=== PATIENT | male | born 1960 | race American Indian/Alaskan Native ===

== ENCOUNTER 2017-02-03 13:02 | Emergency (ER) | payer OTHER ==
[2017-02-03] MEDS ORDERED: TYLENOL PO ONE (14:17)
--- NOTE | 2017-02-03 14:17 | Emergency Department Report ---
Chief Complaint: Weakness Stated Complaint: WEAK Time Seen by Provider: 02/03/17 14:14 - HPI History of Present Illness: pt c/o generalized weakness x 2 weeks. - ROS Review of Systems: - headache + nausea + urinary frequency - Exam Physical Exam: PT is alert and appropriate steady gait no focal weakness MSE screening note: Focused history and physical exam performed. Due to findings the following was ordered: labs ED Disposition for MSE Condition: Stable
[2017-02-03 14:52] LABS: Basophils % (Auto) 0.3 % (0.0-1.8); Eosinophils % (Auto) 0.3 % (0.0-4.3); Hematocrit 47.7 % (35.5-45.6); Hemoglobin 15.9 gm/dl (11.8-15.2); Mean Corpuscular HGB Conc 33 % (32-34); Mean Corpuscular Hemoglobin 29 pg (28-32); Mean Corpuscular Volume 87 fl (84-94); Platelet Count 353 K/mm3 (140-440); Red Blood Count 5.48 M/mm3 (3.65-5.03); Red Cell Distribution Width 14.3 % (13.2-15.2); White Blood Count 10.4 K/mm3 (4.5-11.0)
[2017-02-03 15:01] LABS: INR 1.06 (0.87-1.13)
[2017-02-03 15:18] LABS: Erythrocyte Sedimentation Rate 31 mm/Hr (0-20)
[2017-02-03 15:25] LABS: Alanine Aminotransferase 29 units/L (7-56); Albumin 3.9 g/dL (3.9-5); Alkaline Phosphatase 87 units/L (35-129); Anion Gap 22 mmol/L; BUN/Creatinine Ratio 8.88; Blood Urea Nitrogen 8 mg/dL (9-20); Calcium 9.6 mg/dL (8.4-10.2); Carbon Dioxide 25 mmol/L (22-30); Chloride 93.8 mmol/L (98-107); Glucose 115 mg/dL (75-100); Lipase 27 units/L (13-60); Potassium 4.4 mmol/L (3.6-5.0); Sodium 136 mmol/L (137-145); Total Protein 7.9 g/dL (6.3-8.2)
[2017-02-03] MEDS ORDERED: NACL 0.9% 1000 ML IV ONE (15:54)
--- NOTE | 2017-02-03 15:55 | Emergency Department Report ---
ED General Adult HPI - General Chief complaint: Fever Stated complaint: WEAK Time Seen by Provider: 02/03/17 14:14 Source: patient Mode of arrival: Ambulatory Limitations: No Limitations - History of Present Illness Initial comments: Patient is a 56-year-old male who presents with fever and body aches. Patient states that for the last 2 weeks he he's been having fever. And myalgias. He went to the [facility] 2 weeks ago he states that the only person he was sick around was a nohemy in the plane was coughing a lot. His body aches occur intermittently and some achy type of pain they radiate throughout his body. Nothing makes it better or worse the body aches are 4 out 10. Patient states that his fever has been high in the 100s. And he has some night sweats at night. He denies having any cough. But he urinates frequently. - Related Data Previous Rx's Medication Instructions Recorded Last Taken Type Ciprofloxacin [Ciprofloxacin ORAL 500 mg PO Q12H #14 ml 02/03/17 Unknown Rx LIQ] Allergies Allergy/AdvReac Type Severity Reaction Status Date / Time No Known Allergies Allergy Unverified 02/03/17 14:19 ED Review of Systems ROS: Stated complaint: WEAK Other details as noted in HPI Constitutional: fever, weakness Eyes: denies: eye pain, eye discharge, vision change ENT: denies: ear pain, throat pain Respiratory: denies: cough, shortness of breath, wheezing Cardiovascular: denies: chest pain, palpitations Endocrine: no symptoms reported Gastrointestinal: denies: abdominal pain, nausea, diarrhea Genitourinary: urgency, frequency. denies: dysuria Musculoskeletal: myalgia Skin: denies: rash, lesions Neurological: denies: headache, weakness, paresthesias Psychiatric: denies: anxiety, depression Hematological/Lymphatic: denies: easy bleeding, easy bruising ED Past Medical Hx - Past Medical History Previous Medical History?: No - Surgical History Past Surgical History?: Yes Additional Surgical History: Left Knee - Social History Smoking Status: Never Smoker Substance Use Type: None - Medications Home Medications: Home Medications Medication Instructions Recorded Confirmed Last Taken Type Ciprofloxacin [Ciprofloxacin ORAL 500 mg PO Q12H #14 ml 02/03/17 Unknown Rx LIQ] ED Physical Exam - General Limitations: No Limitations General appearance: alert, in no apparent distress - Head Head exam: Present: atraumatic, normocephalic - Eye Eye exam: Present: normal appearance - ENT ENT exam: Present: mucous membranes moist - Neck Neck exam: Present: normal inspection - Respiratory Respiratory exam: Present: normal lung sounds bilaterally. Absent: respiratory distress, wheezes - Cardiovascular Cardiovascular Exam: Present: regular rate, normal rhythm, normal heart sounds - GI/Abdominal GI/Abdominal exam: Present: soft, normal bowel sounds - Rectal Rectal exam: Present: deferred - Extremities Exam Extremities exam: Present: normal inspection - Back Exam Back exam: Present: normal inspection - Neurological Exam Neurological exam: Present: alert, oriented X3 - Psychiatric Psychiatric exam: Present: normal affect, normal mood - Skin Skin exam: Present: warm, diaphoretic ED Course Vital Signs 02/03/17 02/03/17 02/03/17 14:14 16:36 16:39 Temperature 103 F H Pulse Rate 93 H Respiratory 22 16 16 Rate Blood Pressure 173/122 Blood Pressure [Left] O2 Sat by Pulse 99 100 Oximetry 02/03/17 02/03/17 02/03/17 16:40 16:55 20:25 Temperature 99.5 F 98.9 F Pulse Rate 76 74 72 Respiratory 18 16 20 Rate Blood Pressure Blood Pressure 120/74 120/72 [Left] O2 Sat by Pulse 100 100 Oximetry - Reevaluation(s) Reevaluation #1: 02/03/17 18:43 discussed with patient that with his high fever and with his myalgias and is outside travel he needs to be admitted. Gave patient a work note because he has to go to court tomorrow and that he must be excused because he has a life-threatening condition. 02/03/17 23:48 Reevaluation #2: 02/03/17 18:46 Amrit is patient with Dr. Richards the hospitalist he agrees with admission states that Vancomycin and Zosyn should be fine. ED Medical Decision Making - Lab Data Result diagrams: 02/03/17 14:32 02/03/17 14:32 Laboratory Results - last 24 hr 02/03/17 02/03/17 02/03/17 14:21 14:32 14:32 WBC 10.4 RBC 5.48 H Hgb 15.9 H Hct 47.7 H MCV 87 MCH 29 MCHC 33 RDW 14.3 Plt Count 353 Lymph % (Auto) 14.9 Moore % (Auto) 6.9 Eos % (Auto) 0.3 Baso % (Auto) 0.3 Lymph # 1.6 Moore # 0.7 Eos # 0.0 Baso # 0.0 Seg Neutrophils % 77.6 H Seg Neutrophils # 8.1 H ESR 31 PT INR Sodium 136 L Potassium 4.4 Chloride 93.8 L Carbon Dioxide 25 Anion Gap 22 BUN 8 L Creatinine 0.9 Estimated GFR > 60 BUN/Creatinine Ratio 8.88 Glucose 115 H POC Glucose 104 Lactic Acid Calcium 9.6 Total Bilirubin 1.30 H AST 34 ALT 29 Alkaline Phosphatase 87 Troponin T < 0.010 C-Reactive Protein 20.80 H Total Protein 7.9 Albumin 3.9 Albumin/Globulin Ratio 1.0 Lipase 27 Urine Color Urine Turbidity Urine pH Ur Specific [place] Urine Protein Urine Glucose (UA) Urine Ketones Urine Blood Urine Nitrite Urine Bilirubin Urine Urobilinogen Ur Leukocyte Esterase Urine WBC (Auto) Urine RBC (Auto) U Epithel Cells (Auto) Urine Bacteria (Auto) Urine WBC Clumps Urine Mucus 02/03/17 02/03/17 02/03/17 14:32 14:39 15:30 WBC RBC Hgb Hct MCV MCH MCHC RDW Plt Count Lymph % (Auto) Moore % (Auto) Eos % (Auto) Baso % (Auto) Lymph # Moore # Eos # Baso # Seg Neutrophils % Seg Neutrophils # ESR PT 14.3 INR 1.06 Sodium Potassium Chloride Carbon Dioxide Anion Gap BUN Creatinine Estimated GFR BUN/Creatinine Ratio Glucose POC Glucose Lactic Acid 2.00 Calcium Total Bilirubin AST ALT Alkaline Phosphatase Troponin T C-Reactive Protein Total Protein Albumin Albumin/Globulin Ratio Lipase Urine Color Yellow Urine Turbidity Cloudy Urine pH 5.0 Ur Specific [place] 1.014 Urine Protein 100 mg/dl Urine Glucose (UA) Neg Urine Ketones Neg Urine Blood Lg Urine Nitrite Pos Urine Bilirubin Neg Urine Urobilinogen 4.0 Ur Leukocyte Esterase Lg Urine WBC (Auto) > 182.0 H Urine RBC (Auto) 18.0 U Epithel Cells (Auto) < 1.0 Urine Bacteria (Auto) 1+ Urine WBC Clumps 3+ Urine Mucus Few - EKG Data -: EKG Interpreted by Mi - EKG Data 02/03/17 17:45 EKG shows normal sinus rhythm no T-wave inversions no LVH and no prolonged intervals. - Radiology Data Radiology results: image reviewed Chest x-ray shows no acute pulmonary disease. - Medical Decision Making Chief medical diagnosis: Sepsis secondary to UTI Differential medical diagnosis: Pneumonia, viral infection, malaria, yellow fever We'll get CBC, CMP, urinalysis, blood cultures, 30 mL per kilo fluid bolus, antibiotics. The patient had been potential sepsis and getting vancomycin he will need to be admitted to the hospital. Due to patient having such high fever as ago on for the last 2 weeks has a potentially life-threatening infection will admit patient to hospital. Patient's urine shows a large palpable WBCs which is like the source of his infection. Critical Care Time: Yes Critical care time in (mins) excluding proc time.: 30 Critical care attestation.: If time is entered above; I have spent that time in minutes in the direct care of this critically ill patient, excluding procedure time. Time spent with patient 20 minutes Time spent over patient's lab 5 minutes Time spent discussing patient's family 5 minutes Time reviewed and all labs 0 minutes ED Disposition Clinical Impression: Sepsis Qualifiers: Sepsis type: sepsis due to unspecified organism Qualified Code(s): A41.9 - Sepsis, unspecified organism UTI (urinary tract infection) Qualifiers: Urinary tract infection type: acute cystitis Hematuria presence: without hematuria Qualified Code(s): N30.00 - Acute cystitis without hematuria Disposition: OP ADMIT IP TO THIS HOSP Is pt being admited?: Yes Does the pt Need Aspirin: No Condition: Stable Prescriptions: Ciprofloxacin [Ciprofloxacin ORAL LIQ] 500 mg PO Q12H #14 ml Referrals: PRIMARY CARE, [Primary Care Provider] - 3-5 Days Forms: Work/School Release Form(ED)
[2017-02-03] MEDS ORDERED: VANCOMYCIN VIAL IV ONE (16:15)
[2017-02-03 16:16] LABS: Bacteria,Urine 1+ /HPF (Negative); Bilirubin,Urine NEG (Negative); Blood,Urine LG (Negative); Ketones,Urine NEG (Negative); Leukocyte Esterase,Urine LG (Negative); Mucus,Urine FEW /HPF; Nitrite,Urine POS (Negative)
[2017-02-03 16:17] LABS: WBC,Urine > 182.0 /HPF (0.0-6.0)
[2017-02-03] MEDS ORDERED: ZOSYN/NS 4.5GM/100ML 4.5 GM/100 ML VIAL IV ONE (16:17)
[2017-02-03 16:56] LABS: LA REFLEX Y
[2017-02-03] MEDS ORDERED: VANCOMYCIN PHARMACY TO DOSE IV SCH (17:00)
[2017-02-03] MEDS ORDERED: VANCOMYCIN 1,750 MG in NACL 0.9% 500 ML 500 ML IV ONE (18:00)
--- NOTE | 2017-02-03 18:28 | History and Physical Report ---
Medications and Allergies Allergies Allergy/AdvReac Type Severity Reaction Status Date / Time No Known Allergies Allergy Unverified 02/03/17 14:19 Active Meds: Active Medications Vancomycin HCl 1,750 mg/ (Sodium Chloride) 535 mls @ 333.333 mls/hr IV ONCE.ED ONE Stop: 02/03/17 19:36 Last Admin: 02/03/17 18:18 Dose: 333.333 mls/hr Vancomycin HCl 1,500 mg/ (Sodium Chloride) 530 mls @ 333.333 mls/hr IV Q12H K[facility] Vancomycin HCl (Vancomycin Pharmacy To Dose) 1 each IV PKCONSULT K[facility]H PRN Reason: Protocol Exam - Constitutional Vitals: Temp Pulse Resp BP Pulse Ox 99.5 F 74 16 120/74 100 02/03/17 16:55 02/03/17 16:55 02/03/17 16:55 02/03/17 16:55 02/03/17 16:55 Results - Labs CBC & Chem 7: 02/03/17 14:32 02/03/17 14:32 Labs: Abnormal lab results 02/03/17 02/03/17 02/03/17 Range/Units 14:32 14:32 15:30 RBC 5.48 H (3.65-5.03) M/mm3 Hgb 15.9 H (11.8-15.2) gm/dl Hct 47.7 H (35.5-45.6) % Seg Neutrophils % 77.6 H (40.0-70.0) % Seg Neutrophils # 8.1 H (1.8-7.7) K/mm3 Sodium 136 L (137-145) mmol/L Chloride 93.8 L (98-107) mmol/L BUN 8 L (9-20) mg/dL Glucose 115 H (75-100) mg/dL Total Bilirubin 1.30 H (0.1-1.2) mg/dL C-Reactive Protein 20.80 H (0.00-1.30) mg/dL Urine WBC (Auto) > 182.0 H (0.0-6.0) /HPF
[2017-02-03] MEDS ORDERED: NACL 0.9% 1000 ML 2,000 ML IV ONE (18:31)
--- NOTE | 2017-02-03 18:41 | Admit Criteria Form ---
Admission Criteria Documentation: SEPSIS and OTHER FEBRILE ILLNESS, W/O FOCAL INFECTION Clinical Indications for Admission to Inpatient Care ( Place 'X' for any and all applicable criteria): Admission is indicated for ANY ONE of the following (1)(2)(3)(4): [ ] I. Bacteremia [ ]II. Suspected or identified specific infection requiring hospitalization (eg, meningitis, endocarditis) [ ]III. Hemodynamic instability [ ]IV. Altered mental status [ ]V. Failure or unavailability of outpatient antimicrobial treatment [ ]. Hypoxemia [ ]VII. Seizures [ ]VIII. High-risk febrile neutropenia [ ]IX. Need for parenteral antibiotic in patient who is likely to abuse vascular access device (eg, injection drug user) [A](7) [ ]X. Temperature greater than 104.9 degrees F (40.5 degrees C) (oral) [X ]XI. Inpatient admission required rather than observation care because of ANY ONE of the following: [ ]1) Specific infection identified that is too severe for outpatient treatment or observation care trial [ ]2) Metabolic disorder (eg, hypoglycemia, hyperglycemia, metabolic acidosis) that is severe or persistent [ ]3) Temperature greater than 103.1 degrees F (39.5 degrees C) ( oral) that is not responsive to observation care treatment [ ]4) IV fluid to replace significant ongoing (eg, for over 24 hours) losses (> 3 L/m2 per day) [ ]5) Supplemental oxygen or respiratory treatments for over 24 hours that is performable only in acute inpatient setting [ ]6) Parenteral nutrition regimen need that must be implemented on inpatient basis [ ]7) Strict or protective (eg, laminar flow) isolation [ X]8) Other condition, treatment or monitoring requiring inpatient admission Extended stay beyond goal length of stay may be needed for(1)(3) [ ]a) Sepsis or septic shock(22) [ ]b) Positive blood cultures [ ]c) Insufficient oral intake [ ]d) High-risk febrile neutropenia(29)(30) [ ]e) Continued fever and clinical instability [ ]f) Clinically active comorbid illness (e.g,heart failure, renal failure , diabetes) The original [facility] [employer] content created by Meng Hunt has been revised. The portions of the content which have been revised are identified through the use of italic text or in bold, and Meng Hunt has neither reviewed nor approved the modified material. All other unmodified content is copyright [facility]. Please see references footnoted in the original [facility] edition 2016
[2017-02-03] MEDS ORDERED: LEVAQUIN 500MG/100ML 500 MG/100 ML BAG IV SCH (20:00)
[2017-02-04 00:14] VITALS: BP 120/70
[2017-02-04] MEDS ORDERED: VANCOMYCIN 1,500 MG in NACL 0.9% 500 ML 500 ML IV SCH (06:00)
--- NOTE | 2017-02-04 14:02 | XRay Report ---
CHEST TWO VIEWS: 02/03/17 13:02:00 CLINICAL: Fever. COMPARISON: None FINDINGS: Normal heart and pulmonary vasculature. The lungs are normally expanded and clear.The bones and soft tissues are unremarkable. IMPRESSION: Normal chest.
== END 2017-02-04 00:57 | disposition admitted as inpatient to this hospital (09) ==
LOC: ED 13:02
DX: A41.9 Sepsis, unspecified organism (principal); N39.0 Urinary tract infection, site not specified
CPT/HCPCS: 36415; 71020; 80053; 81001; 82140; 82962; 83690; 84484; 85025; 85610; 85652; 86140; 87040; 87076; 87086; 87186; 93005; 93010; 96365; 96366; 96368; 99291; J2543; J3370; J7030; J7040

== ENCOUNTER 2018-07-13 16:56 | Emergency (ER) | payer SELFPAY ==
[2018-07-13 17:13] VITALS: BP 139/92
[2018-07-13 18:37] LABS: Bacteria,Urine 1+ /HPF (Negative); Bilirubin,Urine NEG (Negative); Blood,Urine SM (Negative); Color,Urine Straw (Yellow); Protein,Urine <15 mg/dL mg/dL (Negative); Urobilinogen,Urine < 2.0 mg/dL (<2.0)
== END 2018-07-13 21:35 | disposition left against medical advice (07) ==
LOC: ED 16:56
DX: Z09 Encounter for follow-up examination after completed treatment for conditions other than malignant neoplasm (principal); Z53.21 Procedure and treatment not carried out due to patient leaving prior to being seen by health care provider
CPT/HCPCS: 81001

== ENCOUNTER 2018-07-14 15:22 | Emergency (ER) | payer SELFPAY ==
[2018-07-14 15:38] VITALS: BP 140/91
--- NOTE | 2018-07-14 15:57 | Emergency Department Report ---
ED Recheck HPI - General Chief Complaint: Back Pain/Injury Stated Complaint: BLADDER/KIDNEY Time Seen by Provider: 07/14/18 15:54 Source: patient Mode of arrival: Ambulatory Limitations: No Limitations - History of Present Illness Initial Comments: Dk is a very pleasant 58-year-old -[place] male who comes to the emergency room for a follow-up appointment for his dysuria. He actually got confused as to where he was supposed to be thought he was coming to the ER but in fact we have referred him to [facility]. Since he was here we did a UA to follow-up from his UTI. As it turns out patient continues to have leukorrhea despite several months of antibiotic treatment. Note that the patient was admitted last summer for dysuria. He received treatment in the emergency room several times. The urine does improve but it has not gotten better. Patient does have some dysuria. He has no fever and his vital signs are stable. Symptoms Since Prior Visit: no new symptoms Associated Symptoms: denies: fever, chills, chest pain, shortness of breath, rash, malaise, nasuea - Related Data Previous Rx's Medication Instructions Recorded Last Taken Type Doxycycline [Vibramycin CAP] 100 mg PO Q12HR #20 capsule 07/14/18 Unknown Rx Allergies Allergy/AdvReac Type Severity Reaction Status Date / Time No Known Allergies Allergy Unverified 02/03/17 14:19 ED Review of Systems ROS: Stated complaint: BLADDER/KIDNEY Other details as noted in HPI Comment: All other systems reviewed and negative Constitutional: denies: chills Eyes: denies: eye pain ENT: denies: throat pain Endocrine: denies: flushing Gastrointestinal: denies: nausea Genitourinary: as per HPI, dysuria Skin: denies: lesions Neurological: denies: weakness ED Past Medical Hx - Past Medical History Previous Medical History?: No - Surgical History Past Surgical History?: Yes Additional Surgical History: Left Knee - Social History Smoking Status: Former Smoker Substance Use Type: None - Medications Home Medications: Home Medications Medication Instructions Recorded Confirmed Last Taken Type Doxycycline [Vibramycin CAP] 100 mg PO Q12HR #20 capsule 07/14/18 Unknown Rx ED Physical Exam - General Limitations: No Limitations General appearance: alert - Head Head exam: Present: atraumatic - Eye Eye exam: Present: normal appearance Pupils: Present: normal accommodation - ENT ENT exam: Present: mucous membranes moist - Neck Neck exam: Present: normal inspection, full ROM - Respiratory Respiratory exam: Present: normal lung sounds bilaterally - Cardiovascular Cardiovascular Exam: Present: regular rate - GI/Abdominal GI/Abdominal exam: Present: soft, normal bowel sounds - Rectal Rectal exam: Present: deferred - Extremities Exam Extremities exam: Present: normal inspection, full ROM - Back Exam Back exam: Present: normal inspection, full ROM - Neurological Exam Neurological exam: Present: alert, oriented X3 - Psychiatric Psychiatric exam: Present: normal affect, normal mood - Skin Skin exam: Present: warm, dry, intact ED Course Vital Signs 07/14/18 15:34 Temperature 97.9 F Pulse Rate 75 Respiratory 20 Rate Blood Pressure 140/91 O2 Sat by Pulse 99 Oximetry ED Recheck MDM - Core Measures Measure Exclusions: not indicated - Medical Decision Making Patient's UA today is still noted to have wbc's and leukocytes. This is in context with his chronic dysuria. In reviewing the EMR he is received numerous courses of antibiotics. His initial UA was hospitalized was positive for Escherichia coli. Today I sent the urine for culture. I sent GC and chlamydia cultures. I treated the patient periodically with Rocephin, and Cipro, Flagyl and doxycycline. I've explained all this to the patient and asked him to follow up with urology. I've asked him to inform urology that he has been here several times so they can retrieve his medical records. I don't know if this is a bacterial issue for primary exposure secondary to urinary retention. He denies history of prostate disease. When urine cultures come back please call the patient at [phone] with results Critical care attestation.: If time is entered above; I have spent that time in minutes in the direct care of this critically ill patient, excluding procedure time. ED Disposition Clinical Impression: UTI (urinary tract infection), Dysuria Disposition: TO HOME OR SELFCARE Is pt being admited?: No Does the pt Need Aspirin: No Condition: Stable Instructions: Urinary Tract Infection in Men (ED) Additional Instructions: DRINK A LOT OF WATER FOLLOW UP INSTRUCTED Prescriptions: Doxycycline [Vibramycin CAP] 100 mg PO Q12HR #20 capsule Referrals: [facility] [Outside] - 3-5 Days ADENIKE GONZALEZ MD [Staff Physician] - 3-5 Days Time of Disposition: 15:57
[2018-07-14 16:08] LABS: Bacteria,Urine 1+ /HPF (Negative); Bilirubin,Urine NEG (Negative); Blood,Urine SM (Negative); Color,Urine Yellow (Yellow); Mucus,Urine FEW /HPF; Protein,Urine <15 mg/dL mg/dL (Negative); Urobilinogen,Urine < 2.0 mg/dL (<2.0)
[2018-07-14] MEDS ORDERED: XYLOCAINE 1% MPF 5 mL INFILTRATI ONE (16:24)
[2018-07-14] MEDS ORDERED: ROCEPHIN IM ONE (16:24)
[2018-07-14] MEDS ORDERED: ZITHROMAX PO ONE (16:25)
[2018-07-14] MEDS ORDERED: FLAGYL PO ONE (16:25)
== END 2018-07-14 16:45 | disposition home or self-care (01) ==
LOC: ED 15:22
DX: N39.0 Urinary tract infection, site not specified (principal); Z87.891 Personal history of nicotine dependence
CPT/HCPCS: 81001; 87086; 87591; 96372; 99283; J0696

== ENCOUNTER 2018-08-25 00:44 | Emergency (ER) | payer OTHER, BC ==
[2018-08-25] MEDS ORDERED: IBUPROFEN PO ONE (07:06)
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
--- NOTE | 2018-08-25 08:25 | XRay Report ---
LUMBOSACRAL SPINE, 3 VIEWS: History: Lower back pain Findings: Moderate degenerative disc disease is identified at L4-5. Mild to moderate diffuse facet arthropathy is identified. No evidence for compression deformity, subluxation or bone lesion. The sacrum and SI joints are unremarkable. Impression: Lumbar spondylosis as described.
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
[2018-08-25 09:02] VITALS: BP 139/90
== END 2018-08-25 09:01 | disposition home or self-care (01) ==
LOC: ED 00:44
DX: S46.911A Strain of unspecified muscle, fascia and tendon at shoulder and upper arm level, right arm, initial encounter (principal); S46.912A Strain of unspecified muscle, fascia and tendon at shoulder and upper arm level, left arm, initial encounter; S13.4XXA Sprain of ligaments of cervical spine, initial encounter; V89.2XXA Person injured in unspecified motor-vehicle accident, traffic, initial encounter; Y93.89 Activity, other specified; Y92.488 Other paved roadways as the place of occurrence of the external cause; Y99.8 Other external cause status
CPT/HCPCS: 72100; 99283

== ENCOUNTER 2019-03-06 19:40 | Emergency (ER) | payer BC ==
[2019-03-06 20:04] VITALS: BP 131/82
--- NOTE | 2019-03-06 20:42 | Event Note ---
ED Screening Note Date of service: 03/06/19 Time: 20:40 ED Screening Note: 58 y old male presents cc of stones in his urine and bleeding started afterwards still having bblood in urine frequent urination This initial assessment/diagnostic orders/clinical plan/treatment(s) is/are subject to change based on patients health status, clinical progression and re- assessment by fellow clinical providers in the ED. Further treatment and workup at subsequent clinical providers discretion. Patient/guardian urged not to elope from the ED as their condition may be serious if not clinically assessed and managed. Initial orders include: ua
[2019-03-06] MEDS ORDERED: ZOFRAN IV ONE (21:07)
[2019-03-06] MEDS ORDERED: TORADOL IV ONE (21:07)
[2019-03-06] MEDS ORDERED: NACL 0.9% 1000 ML 1,000 ML IV ONE (21:08)
[2019-03-06] MEDS ORDERED: FLOMAX PO ONE (21:30)
[2019-03-06 21:40] LABS: Hematocrit 45.9 % (35.5-45.6); Hemoglobin 15.1 gm/dl (11.8-15.2); Mean Corpuscular HGB Conc 33 % (32-34); Mean Corpuscular Volume 88 fl (84-94); Platelet Count 423 K/mm3 (140-440); Red Blood Count 5.23 M/mm3 (3.65-5.03); Red Cell Distribution Width 14.4 % (13.2-15.2)
[2019-03-06 22:03] LABS: Alanine Aminotransferase 16 units/L (7-56); Albumin 3.4 g/dL (3.9-5); BUN/Creatinine Ratio 14; Blood Urea Nitrogen 15 mg/dL (9-20); Hemolysis Index 3
--- NOTE | 2019-03-06 22:19 | Cat Scan Report ---
CT abdomen pelvis wo con INDICATION: MAIN: GROSS HEMATURIA.. TECHNIQUE: All CT scans at this location are performed using CT dose reduction for ALARA by means of automated e xposure control. COMPARISON: None available. FINDINGS: Lung bases are clear of acute disease. Liver, spleen and pancreas appear negative on this noncontrast exam. Gallbladder is mostly collapsed, with no obvious stones. Kidneys and adrenals are grossly nega tive. No renal calculi. Abdominal aorta is normal in size. Pelvis Urinary bladder is thick walled. Distal ureters appear negative. Prostate is moderately enlarged. No rmal appendix. No free fluid. Degenerative changes in the lower lumbar spine but no acute skeletal lesions. IMPRESSION: 1. Thick walled urinary bladder, of uncertain etiology. With moderate prostate enlargement, this coul d be due to chronic bladder outlet obstruction, but there is no hydronephrosis. 2. Kidneys appear negative on this noncontrast exam. Signer Name: Stanley Zamora MD Signed: 03/06/2019 10:14 PM Workstation Name: [id number]
[2019-03-06 23:30] LABS: Basophils % (Manual) 0 % (0.0-1.8); Eosinophils % (Manual) 0 % (0.0-4.3); Total Cells Counted 100
[2019-03-06 23:31] LABS: RBC Morphology Normal
[2019-03-07 01:26] LABS: Bacteria,Urine 1+ /HPF (Negative); Bilirubin,Urine NEG (Negative); Blood,Urine MOD (Negative); Color,Urine Yellow (Yellow); Mucus,Urine FEW /HPF; Protein,Urine <15 mg/dL mg/dL (Negative); Urobilinogen,Urine < 2.0 mg/dL (<2.0)
[2019-03-07 01:31] LABS: WBC,Urine > 182.0 /HPF (0.0-6.0)
[2019-03-07] MEDS ORDERED: LEVAQUIN PO ONE (01:59)
--- NOTE | 2019-03-07 02:05 | Emergency Department Report ---
ED Abdominal Pain HPI - General Chief Complaint: Abdominal Pain Stated Complaint: URIANTED A STONE WITH BLOOD Time Seen by Provider: 03/06/19 20:40 Source: patient Mode of arrival: Ambulatory Limitations: No Limitations - History of Present Illness Initial Comments: Patient is a 58-year-old [place] male with a history of chronic back pain who presents to the ED with complaint of worsening right flank pain that radiates to her back for the last 1 week, and also states that about 2 hours prior to arrival he started having persistent severe urinary urgency and frequency, hematuria with dysuria, and no taste a large dark kidney stone in the toilet. The patient states that he continued to have experienced persistent hematuria and this scared him and he therefore decided to come to the ED for evaluation. Patient denies testicular pain, scrotal swelling, trauma to injury, heavy lifting, fever, chills, penile discharge, chest pain, shortness of breath, nausea and vomiting and diarrhea. MD Complaint: flank pain (right flank pain, radiates to right lower back with hematuria), other (Passed a large kidney stone) -: Sudden, week(s) (1) Location: RLQ, R flank Radiation: R flank, back (lower) Migration to: no migration Severity scale (0 -10): 1 Quality: stabbing, sharp Consistency: intermittent Improves With: nothing Worsens With: nothing Associated Symptoms: denies other symptoms, dysuria, hematuria, other (Passed kidney stone). denies: nausea, vomiting, diarrhea, fever, chills, constipation, hematemesis, hematochezia, melena, anorexia, syncope - Related Data Previous Rx's Medication Instructions Recorded Last Taken Type DOXYCYCLINE Hyclate [Vibramycin 100 mg PO Q12HR #20 capsule 07/14/18 Unknown Rx CAP] Cyclobenzaprine [Flexeril] 10 mg PO QHS PRN #10 tablet 08/25/18 Unknown Rx Ibuprofen [Motrin] 600 mg PO Q8H PRN #20 tablet 08/25/18 Unknown Rx Ketorolac [Toradol] 10 mg PO Q8H PRN #20 tablet 03/07/19 Unknown Rx Ondansetron [Zofran Odt] 4 mg PO Q6HR PRN #15 tab.rapdis 03/07/19 Unknown Rx Tamsulosin [Flomax] 0.4 mg PO QDAY #7 cap 03/07/19 Unknown Rx levoFLOXacin [Levaquin TAB] 500 mg PO QDAY #10 tablet 03/07/19 Unknown Rx Allergies Allergy/AdvReac Type Severity Reaction Status Date / Time No Known Allergies Allergy Unverified 02/03/17 14:19 ED Review of Systems ROS: Stated complaint: URIANTED A STONE WITH BLOOD Other details as noted in HPI Constitutional: denies: chills, fever Eyes: denies: eye pain, eye discharge, vision change ENT: denies: ear pain, throat pain Respiratory: denies: cough, shortness of breath, wheezing Cardiovascular: denies: chest pain, palpitations Endocrine: no symptoms reported Gastrointestinal: abdominal pain (right flank). denies: nausea, diarrhea Genitourinary: urgency, dysuria, frequency, hematuria Musculoskeletal: back pain. denies: joint swelling, arthralgia Skin: denies: rash, lesions Neurological: denies: headache, weakness, paresthesias Psychiatric: denies: anxiety, depression Hematological/Lymphatic: denies: easy bleeding, easy bruising ED Past Medical Hx - Past Medical History Previous Medical History?: Yes Hx Kidney Stones: Yes - Surgical History Past Surgical History?: Yes Additional Surgical History: Left Knee - Social History Smoking Status: Never Smoker Substance Use Type: None - Medications Home Medications: Home Medications Medication Instructions Recorded Confirmed Last Taken Type DOXYCYCLINE Hyclate [Vibramycin 100 mg PO Q12HR #20 capsule 07/14/18 Unknown Rx CAP] Cyclobenzaprine [Flexeril] 10 mg PO QHS PRN #10 tablet 08/25/18 Unknown Rx Ibuprofen [Motrin] 600 mg PO Q8H PRN #20 tablet 08/25/18 Unknown Rx Ketorolac [Toradol] 10 mg PO Q8H PRN #20 tablet 03/07/19 Unknown Rx Ondansetron [Zofran Odt] 4 mg PO Q6HR PRN #15 tab.rapdis 03/07/19 Unknown Rx Tamsulosin [Flomax] 0.4 mg PO QDAY #7 cap 03/07/19 Unknown Rx levoFLOXacin [Levaquin TAB] 500 mg PO QDAY #10 tablet 03/07/19 Unknown Rx ED Physical Exam - General Limitations: No Limitations General appearance: alert, in no apparent distress - Head Head exam: Present: atraumatic, normocephalic, normal inspection - Eye Eye exam: Present: normal appearance, PERRL, EOMI Pupils: Present: normal accommodation - ENT ENT exam: Present: normal exam, normal orophraynx, mucous membranes moist, TM's normal bilaterally, normal external ear exam - Neck Neck exam: Present: normal inspection, full ROM. Absent: tenderness, meningismus - Respiratory Respiratory exam: Present: normal lung sounds bilaterally. Absent: respiratory distress, wheezes, chest wall tenderness - Cardiovascular Cardiovascular Exam: Present: regular rate, normal rhythm, normal heart sounds. Absent: systolic murmur, diastolic murmur, rubs, gallop - GI/Abdominal GI/Abdominal exam: Present: soft, normal bowel sounds. Absent: tenderness, guarding, hyperactive bowel sounds, hypoactive bowel sounds, organomegaly - Rectal Rectal exam: Present: deferred - exam: Present: normal inspection, scrotal swelling - Extremities Exam Extremities exam: Present: normal inspection, normal capillary refill - Back Exam Back exam: Present: normal inspection, full ROM. Absent: tenderness, CVA tenderness (R), CVA tenderness (L), muscle spasm, paraspinal tenderness - Neurological Exam Neurological exam: Present: alert, oriented X3, CN II-XII intact, normal gait, reflexes normal - Psychiatric Psychiatric exam: Present: normal affect, normal mood - Skin Skin exam: Present: warm, dry, intact, normal color. Absent: rash ED Course Vital Signs 03/06/19 03/06/19 03/06/19 20:01 20:41 21:45 Temperature 99.1 F 99.1 F Pulse Rate 78 78 Respiratory 20 18 16 Rate Blood Pressure 131/82 Blood Pressure 131/82 [Right] O2 Sat by Pulse 95 95 Oximetry 03/06/19 03/07/19 22:15 02:25 Temperature Pulse Rate 67 Respiratory 16 17 Rate Blood Pressure Blood Pressure [Right] O2 Sat by Pulse 99 Oximetry - Reevaluation(s) Reevaluation #1: 03/07/19 06:49 This is a 58-year-old male who presented to the ED with right flank pain and lower back pain with gross hematuria. In the ED patient is alert and oriented 3 and is not in distress. Lab test results were reviewed and show significant urinary tract infection with gross hematuria in urinalysis. There is also acute leukocytosis of 12,500. The other lab test results are non-actionable. Patient was treated in the ED with Levaquin 500 mg by mouth, Flomax 0.4 mg by mouth 1 and Zofran. Patient also received normal saline 1 L IV bolus 1. Abdomen pelvis CT scan without contrast shows urinary bladder which is thick walled. Distal ureters appear negative. Prostate is moderately enlarged. Normal appendix. No free fluid. Degenerative changes in the lower lumbar spine but no acute skeletal lesions. The thick walled bladder could be due to chronic bladder outlet obstruction, but there is no hydronephrosis, and the kidneys appear neg ative on this noncontrast exam. The patient had stated that he noticed some large stone in the toilet after the onset of his symptoms, and therefore the patient may have passed a stone that initial caused his pain. The patient denied any pain after passing this stone prior to arrival in the ED. Patient was discharged home on antibiotics, Flomax and when necessary pain medications and advised follow-up with his primary care physician in 7-10 days for reevaluation or return to the ED immediately if symptoms get worse. ED Medical Decision Making - Lab Data Result diagrams: 03/06/19 21:17 03/06/19 21:17 - Radiology Data Radiology results: report reviewed, image reviewed Findings [facility] [address] [place] [address] Cat Scan Report Signed Patient: SABRINA LEAVITT MR#: [id number] : 1960 Acct:[id number] Age/Sex: 58 / M ADM Date: 03/06/19 Loc: ED Attending Dr: Ordering Physician: ROXI RUSSELL Date of Service: 03/06/19 Procedure(s): CT abdomen pelvis wo con Accession Number(s): [id number] cc: ROXI RUSSELL CT abdomen pelvis wo con INDICATION: MAIN: GROSS HEMATURIA.. TECHNIQUE: All CT scans at this location are performed using CT dose reduction for ALARA by means of automated exposure control. COMPARISON: None available. FINDINGS: Lung bases are clear of acute disease. Liver, spleen and pancreas appear ne gative on this noncontrast exam. Gallbladder is mostly collapsed, with no obvious stones. Kidneys and adrenals are grossly negative. No renal calculi. Abdominal aorta is normal in size. Pelvis Urinary bladder is thick walled. Distal ureters appear negative. Prostate is moderately enlarged. Normal appendix. No free fluid. Degenerative changes in the lower lumbar spine but no acute skeletal lesions. IMPRESSION: 1. Thick walled urinary bladder, of uncertain etiology. With moderate prostate enlargement, this could be due to chronic bladder outlet obstruction, but there is no hydronephrosis. 2. Kidneys appear negative on this noncontrast exam. Signer Name: Stanley Zamora MD Signed: 03/06/2019 10:14 PM Workstation Name: [id number] Transcribed By: TM Dictated By: Stanley Zamora MD Electronically Authenticated By: Stanley Zamora MD Signed Date/Time: 03/06/19 3443 - Medical Decision Making This is a 58-year-old male who presented to the ED with right flank pain and lower back pain with gross hematuria. In the ED patient is alert and oriented 3 and is not in distress. Lab test results were reviewed and show significant urinary tract infection with gross hematuria in urinalysis. There is also acute leukocytosis of 12,500. The other lab test results are non-actionable. Patient was treated in the ED with Levaquin 500 mg by mouth, Flomax 0.4 mg by [facility] 1 and Zofran. Patient also received normal saline 1 L IV bolus 1. Abdomen pelvis CT scan without contrast shows urinary bladder which is thick walled. Distal ureters appear negative. Prostate is moderately enlarged. Normal appendix. No free fluid. Degenerative changes in the lower lumbar spine but no acute skeletal lesions. The thick walled bladder could be due to chronic bladder outlet obstruction, but there is no hydronephrosis, and the kidneys appear negative on this noncontrast exam. The patient had stated that he noticed some large stone in the toilet after the onset of his symptoms, and therefore the patient may have passed a stone that initial caused his pain. The patient de nied any pain after passing this stone prior to arrival in the ED. Patient was discharged home on antibiotics, Flomax and when necessary pain medications and advised follow-up with his primary care physician in 7-10 days for reevaluation or return to the ED immediately if symptoms get worse. - Differential Diagnosis Flank pains; hematuria, kidney stones, acute UTI; Urinary retention Critical care attestation.: If time is entered above; I have spent that time in minutes in the direct care of this critically ill patient, excluding procedure time. ED Disposition Clinical Impression: Acute urinary tract infection, Acute abdominal pain in right flank, Recurrent kidney stones, Hematuria due to cystitis Disposition: - TO HOME OR SELFCARE Is pt being admited?: No Does the pt Need Aspirin: No Condition: Stable Instructions: Kidney Stones (ED), Urinary Tract Infection in Men (ED), Renal Colic (ED), Flank Pain (ED) Additional Instructions: Take medications with food, drink plenty of fluids and follow up with your primary care physician in 7-10 days for reevaluation. Return to the ED immediately if symptoms get worse. Prescriptions: Tamsulosin [Flomax] 0.4 mg PO QDAY #7 cap levoFLOXacin [Levaquin TAB] 500 mg PO QDAY #10 tablet Ketorolac [Toradol] 10 mg PO Q8H PRN #20 tablet PRN Reason: Pain Ondansetron [Zofran Odt] 4 mg PO Q6HR PRN #15 tab.rapdis PRN Reason: Nausea Referrals: [facility] [Outside] - 3-5 Days Time of Disposition: 02:03 Print Language: CITIZEN OF [place]
== END 2019-03-07 02:25 | disposition home or self-care (01) ==
LOC: ED 19:40
DX: N39.0 Urinary tract infection, site not specified (principal)
CPT/HCPCS: 36415; 74176; 80053; 81001; 83690; 85007; 85025; 96374; 96375; 99284; J1885; J2405; J7030

== ENCOUNTER 2020-07-17 06:15 | Day surgery (SDC) | payer OTHER ==
[~2020-07-17 06:15] MED LIST: LACTATED RINGERS 1,000 ML IV SCH; MIDAZOLAM 2 MG/2 ML INJ IV NR
[2020-07-17] MEDS ORDERED: fentaNYL 100 MCG/2 ML INJ IV PRN (07:27)
[2020-07-17] MEDS ORDERED: ONDANSETRON 4 MG/2 ML INJ IV PRN (07:27)
--- NOTE | 2020-07-17 07:27 | Anesthesia Day of Surgery ---
Anesthesia Day of Surgery - Day of Surgery Patient Examined: Yes Patient H&P Reviewed: Yes Patient is NPO: Yes
--- NOTE | 2020-07-17 07:27 | Anesthesia Consultation ---
Anesthesia Consult and Med Hx Date of service: 07/17/20 - Airway Anesthetic Teeth Evaluation: Good ROM Head & Neck: Adequate Mental/Hyoid Distance: Adequate Mallampati Class: Class I Intubation Access Assessment: Good - Pulmonary Exam CTA: Yes - Cardiac Exam Cardiac Exam: RRR - Pre-Operative Health Status ASA Pre-Surgery Classification: ASA1 Proposed Anesthetic Plan: General - Pulmonary Hx Smoking: No Hx Respiratory Symptoms: No Hx Sleep Apnea: No (DANIELLE PRE SCREEN LOW RISK) - Cardiovascular System Hx Hypertension: No Hx Heart Attack/AMI: No Hx Percutaneous Transluminal Coronary Angioplasty (PTCA): No - Central Nervous System CVA: No Hx Back Pain: Yes - Endocrine Hx Renal Disease: No Hx Liver Disease: No Hx Insulin Dependent Diabetes: No Hx Non-Insulin Dependent Diabetes: No Hx Thyroid Disease: No - Other Systems Hx Obesity: No - Additional Comments Anesthesia Medical History Comments: No hx anesthetic complications.
[2020-07-17] MEDS ORDERED: BUPIVACAINE/PF (0.25%) 2.5 MG/ML 10 ML VIAL INFILTRATI ONE (07:32)
[2020-07-17] MEDS ORDERED: NEOMY 3.5 MG/BACIT 400 UNITS/POLY B 5000 UNITS OINT 15 GM TP ONE ×2 (07:32→10:12)
[2020-07-17] MEDS ORDERED: ceFAZolin/STERILE WATER 2 GM/20 ML SYRINGE IV NR (08:03)
[2020-07-17] MEDS ORDERED: propofoL 200 MG/20 ML VIAL IV ONE (09:42)
[2020-07-17] MEDS ORDERED: LIDOCAINE MPF (2%) 20 MG/1 ML VIAL 5 ML ONE (09:42)
[2020-07-17] MEDS ORDERED: fentaNYL 100 MCG/2 ML INJ ONE (09:42)
[2020-07-17] MEDS ORDERED: IOHEXOL 300 MG/ML 50ML IV ONE (10:12)
[2020-07-17] MEDS ORDERED: WATER FOR IRRIG STERILE 1,500 ML BOTTLE IR ONE (10:13)
[2020-07-17] MEDS ORDERED: dexAMETHasone 20 MG/5 ML VIAL ONE (10:48)
[2020-07-17] MEDS ORDERED: ONDANSETRON 4 MG/2 ML INJ ONE (10:48)
[2020-07-17] MEDS ORDERED: LACTATED RINGERS 1,000 ML ONE (10:48)
[2020-07-17] MEDS ORDERED: BUPIVACAINE-EPINEPHRINE/PF 0.25%-1:200,000 (30 ML) VIAL INFILTRATI ONE (11:05)
--- NOTE | 2020-07-17 12:27 | Post Operative Note ---
Date of procedure: 07/17/20 Pre-op diagnosis: hematuria severe phimosis Post-op diagnosis: same Findings: as above Procedure: circ cysto Anesthesia: GETA Surgeon: ADENIKE GONZALEZ Estimated blood loss: minimal Pathology: list Specimen disposition: to lab Condition: stable Disposition: PACU
--- NOTE | 2020-07-17 12:28 | Discharge Summary ---
Short Stay Discharge Plan Activity: other (no straining or sex ) Weight Bearing Status: Full Weight Bearing Diet: low fat, low cholesterol, low salt Wound: open to air Special Instructions: other (remove dressing tonight ) Additional Instructions: Follow Dr Robledo instructions Follow up in 10 days Take Dressing off tonight Follow up with: PRIMARY CARE, [Primary Care Provider] - 7 Days ADENIKE ROBLEDO MD [Staff Physician] - 10 Days Forms: [facility] Inst.
--- NOTE | 2020-07-17 12:42 | Post Anesthesia Evaluation ---
- Post Anesthesia Evaluation Patient Participated: Yes Airway Patent: Yes Stable Respiratory Function: Yes Nausea/Vomiting: No Temp > 96.8F: Yes Pain Manageable: Yes Adequeate Hydration: Yes Anesthesia Complications: No
--- NOTE | 2020-07-17 14:22 | Fluoroscopy Report ---
INTRAOPERATIVE FLUOROSCOPY: RETROGRADE UROGRAPHY INDICATION / CLINICAL INFORMATION: HEMATURIA/PHIMOSIS. TECHNIQUE: Intraoperative spot images were obtained during the procedure. FINDINGS: Bilateral retrograde pyelograms are shown. See operative/procedure note by performing physician for full details. 10 mL Omnipaque 300 utilized. Fluoroscopy Time: 31 seconds. Fluoroscopy Images: 8. Signer Name: Geovani Hu MD Signed: 07/17/2020 2:18 PM Workstation Name: [id number]
--- NOTE | 2020-07-17 15:32 | Operative Report ---
PREOPERATIVE DIAGNOSES: Severe phimosis, inability to see the glans, severe scarring and history of hematuria, likely related to above. POSTOPERATIVE DIAGNOSES: Severe phimosis, inability to see the glans, severe scarring and history of hematuria, likely related to above. PROCEDURES: Dorsal slit technique, circumcision with debridement with severe scarring, cystoscopy retrograde. SURGEON: Dr. Robledo ANESTHESIA: General. FINDINGS: This is a gentleman with severe scarring, cannot see the head of the penis, intermittent bleeding. He now presents for cystoscopy and circumcision. DESCRIPTION OF PROCEDURE: The patient was brought to the operating room and placed in the operating table. Following induction of anesthesia, placed in lithotomy position, prepped and draped in the usual sterile fashion. Two hemostats attached dorsally and a slit was obtained. We can see right away there was scarring from the glans to the inner foreskin. With blunt and sharp dissection, we released it as best as possible to obtain some ____ suture to. The ventral slit was done and ____ skin was excised. Wound was irrigated. Small vessels were tied or cauterized as needed. Sutures were placed at 12, 3, 6, and 9 o'clock position. Each quadrant was sutured. The patient tolerated the procedure well. Markedly better cosmetically than it was. Could see the glans which was discolored. There were no tumors there. Cystoscopy retrograde showed no lesions. Good drainage was done on fluoroscopy. The patient tolerated the procedure well. Minimal blood loss. He was brought to recovery in stable condition. JOB# [id number] QUYEN/RUPAL
[2020-07-17 15:45] VITALS: BP 126/78
== END 2020-07-17 06:16 | disposition home or self-care (01) ==
LOC: OR 06:15
PROVIDERS: ATTEND Urology
DX: N47.1 Phimosis (principal); R31.9 Hematuria, unspecified; N48.1 Balanitis; Z87.442 Personal history of urinary calculi; Z87.440 Personal history of urinary (tract) infections
CPT/HCPCS: 52005; 54161; 74420; 88304; A6250; C1758; J0690; J1100; J2250; J2405; J2704; J3010; J7120; Q9967